=== PATIENT | male | born 1950 | race Caucasian/White ===

== ENCOUNTER 2016-03-19 18:55 | Inpatient (IN) | payer MEDICAID, OTHER ==
[~2016-03-19] VITALS: Ht 162.6 cm; Wt 72.5 kg
[~2016-03-19 18:55] MED LIST: "\\\"BP MED\\\""; ALBUTEROL SULF8.5 GM IH; AMITRIPTYLINE150 MG PO; FLOMAX0.4 MG PO; HYDROCHLOROTHIA25 MG PO; PAXIL20 MG PO; PREDNISONE50 MG PO; TOPROL XL100 MG PO; ZESTRIL,PRINIVIL5 MG PO; ZOCOR20 MG PO
[2016-03-19 19:59] LABS: BASOPHIL COUNT 0.1 K/uL (0-0.1); EOSINOPHIL (%) 3.7 % (0-5); EOSINOPHIL COUNT 0.5 K/uL (0-0.3); HEMATOCRIT 45.3 % (38.0-50.0); IMMATURE GRANULOCYTE (%) 0.5 % (0.0-0.7); IMMATURE GRANULOCYTE COUNT 0.6 K/uL; LYMPHOCYTE COUNT 1.4 K/uL (1.0-2.8); MCH 27.6 PG (29.0-34.0); MCHC 34.2 G/DL (30.0-36.0); MCV 80.7 FL (86-99); MEAN PLAT.VOLUME 9.3 uM^3 (9.0-12.4); MONOCYTE (%) 8.9 % (3-12); MONOCYTE COUNT 1.2 K/uL (0-0.8); NEUTROPHIL (%) 75.6 % (45-76); PLATELET COUNT 495 K/uL (156-360); RBC DIS.WIDTH-CV 15.7 % (11.8-14.6); RED BLOOD COUNT 5.61 M/uL (4.00-5.50); WHITE BLOOD COUNT 13.2 K/uL (4.1-10.2)
[2016-03-19 20:30] LABS: CHLORIDE 105 mEq/L (99-109); POTASSIUM 3.9 mEq/L (3.7-5.4); SODIUM 137 mEq/L (136-147)
[2016-03-19 20:32] LABS: GLUCOSE 95 mg/dL (70-99)
[2016-03-19 20:33] LABS: ANION GAP 9 MEQ/L (2-14)
[2016-03-19 20:34] LABS: TOTAL BILIRUBIN 4.2 mg/dL (0.0-1.0)
[2016-03-19 20:35] LABS: ALKALINE PHOSPHATASE 582 IU/L (3-129)
[2016-03-19 20:36] LABS: GFR ESTIMATE (CALCULATED) > 59 mL/min/
[2016-03-19 20:37] LABS: UREA NITROGEN (BUN) 15 mg/dL (9-23)
[2016-03-19 20:39] LABS: LIPASE 237 U/L (1.0-51.0)
[2016-03-20] VITALS (8 sets, daily range): BP systolic 102–180; BP diastolic 48–98
[2016-03-20 07:07] LABS: BILIRUBIN SMALL; BLOOD NEGATIVE; COLOR YELLOW ((YELLOW)); GLUCOSE (STRIP) NEGATIVE; KETONES NEGATIVE; LEUKOCYTES NEGATIVE; NITRITE NEGATIVE; PH, URINE 6.5 (5-8); PROTEIN (STRIP) NEGATIVE; SPECIFIC GRAVITY 1.021 (1.000-1.030); UROBILINOGEN 0.2 MG/DL (0.2-1.0)
[2016-03-20 07:14] LABS: ADD MIUA? NO
[2016-03-21] VITALS (8 sets, daily range): BP systolic 123–181; BP diastolic 70–92
[2016-03-21 08:40] LABS: HEMATOCRIT 44.7 % (38.0-50.0); MCH 28.7 PG (29.0-34.0); MCHC 35.3 G/DL (30.0-36.0); MCV 81.1 FL (86-99); MEAN PLAT.VOLUME 9.9 uM^3 (9.0-12.4); PLATELET COUNT 454 K/uL (156-360); RBC DIS.WIDTH-CV 15.4 % (11.8-14.6); RBC DIS.WIDTH-SD 44.8 % (39-53); RED BLOOD COUNT 5.51 M/uL (4.00-5.50); WHITE BLOOD COUNT 11.8 K/uL (4.1-10.2)
[2016-03-21 09:06] LABS: ALKALINE PHOSPHATASE 550 IU/L (3-129); ANION GAP 13 MEQ/L (2-14); CHLORIDE 106 MEQ/L (99-109); GFR ESTIMATE (CALCULATED) > 59 mL/min/; GLUCOSE 117 mg/dL (70-99); POTASSIUM 3.5 MEQ/L (3.7-5.4); SAMPLE HEMOLYSIS CHECK 0; SAMPLE ICTERIC CHECK 1; SAMPLE LIPEMIA CHECK 0; SODIUM 140 MEQ/L (136-147); TOTAL BILIRUBIN 5.5 MG/DL (0.0-1.0); UREA NITROGEN (BUN) 7 mg/dL (9-23)
[2016-03-22] VITALS (8 sets, daily range): BP systolic 128–166; BP diastolic 59–108
[2016-03-22 09:26] LABS: INTER. NORMALIZED RATIO 1.3; PROTHROMBIN TIME 12.8 (9.2-11.2); PTT 30.9 (25-32)
[2016-03-22] MEDS ORDERED: AMITRIPTYLINE150 MG PO (14:38)
[2016-03-22] MEDS ORDERED: METOPROLOL TART25 MG PO (14:39)
[2016-03-22] MEDS ORDERED: PROAIR RESPICL90 MCG IH (14:39)
[2016-03-22] MEDS ORDERED: ZESTRIL10 MG PO (14:40)
[2016-03-22] MEDS ORDERED: SIMVASTATIN20 MG PO (14:41)
[2016-03-23 07:38] VITALS: BP 136/86
[2016-03-23 16:05] VITALS: BP 154/86
[2016-03-23 20:11] VITALS: BP 163/89
[2016-03-24 00:16] VITALS: BP 139/88
[2016-03-24 08:30] VITALS: BP 160/97
[2016-03-24 15:51] VITALS: BP 156/94
[2016-03-24 19:23] VITALS: BP 162/94
[2016-03-24 19:53] VITALS: BP 152/90
[2016-03-24 23:43] VITALS: BP 150/94
[2016-03-25 07:49] LABS: HEMATOCRIT 41.8 % (38.0-50.0); MCH 29.1 PG (29.0-34.0); MCHC 36.1 G/DL (30.0-36.0); MCV 80.5 FL (86-99); PLATELET COUNT 431 K/uL (156-360); RBC DIS.WIDTH-CV 15.9 % (11.8-14.6); RBC DIS.WIDTH-SD 45.8 % (39-53); RED BLOOD COUNT 5.19 M/uL (4.00-5.50); WHITE BLOOD COUNT 12.1 K/uL (4.1-10.2)
[2016-03-25 07:57] LABS: INTER. NORMALIZED RATIO 1.3; PROTHROMBIN TIME 13.5 (9.2-11.2); PTT 30.2 (25-32)
[2016-03-25 08:16] LABS: ALKALINE PHOSPHATASE 557 IU/L (3-129); ANION GAP 9 MEQ/L (2-14); CHLORIDE 105 MEQ/L (99-109); GFR ESTIMATE (CALCULATED) > 59 mL/min/; GLUCOSE 112 mg/dL (70-99); POTASSIUM 3.9 MEQ/L (3.7-5.4); SAMPLE HEMOLYSIS CHECK 0; SAMPLE ICTERIC CHECK 2; SAMPLE LIPEMIA CHECK 0; SODIUM 137 MEQ/L (136-147); UREA NITROGEN (BUN) 10 mg/dL (9-23)
[2016-03-25 08:21] LABS: TOTAL BILIRUBIN 7.6 MG/DL (0.0-1.0)
[2016-03-25 09:24] VITALS: BP 148/96
[2016-03-25 11:30] VITALS: BP 160/95
[2016-03-25 23:47] VITALS: BP 121/72
[2016-03-26 06:46] LABS: HEMATOCRIT 39.3 % (38.0-50.0); MCHC 34.9 G/DL (30.0-36.0); MCV 80.2 FL (86-99); MEAN PLAT.VOLUME 10.2 uM^3 (9.0-12.4); PLATELET COUNT 419 K/uL (156-360); RBC DIS.WIDTH-CV 15.8 % (11.8-14.6); RBC DIS.WIDTH-SD 45.7 % (39-53); WHITE BLOOD COUNT 10.5 K/uL (4.1-10.2)
[2016-03-26 07:15] LABS: ALKALINE PHOSPHATASE 619 IU/L (3-129); ANION GAP 8 MEQ/L (2-14); CHLORIDE 106 MEQ/L (99-109); GFR ESTIMATE (CALCULATED) > 59 mL/min/; GLUCOSE 102 mg/dL (70-99); POTASSIUM 3.2 MEQ/L (3.7-5.4); SAMPLE HEMOLYSIS CHECK 0; SAMPLE ICTERIC CHECK 2; SAMPLE LIPEMIA CHECK 0; SODIUM 139 MEQ/L (136-147); TOTAL BILIRUBIN 6.7 MG/DL (0.0-1.0); UREA NITROGEN (BUN) 12 mg/dL (9-23)
[2016-03-26 07:50] VITALS: BP 137/78
[2016-03-26 07:56] VITALS: BP 139/84
[2016-03-26 11:03] LABS: ADD MIUA? YES; BILIRUBIN MODERATE; BLOOD NEGATIVE; COLOR AMBER ((YELLOW)); GLUCOSE (STRIP) NEGATIVE; KETONES NEGATIVE; LEUKOCYTES NEGATIVE; NITRITE NEGATIVE; PROTEIN (STRIP) NEGATIVE; SPECIFIC GRAVITY 1.018 (1.000-1.030)
[2016-03-26 11:05] LABS: ICTOTEST POSITIVE
[2016-03-26 11:45] LABS: BACTERIA NONE SEEN /HPF; EPITHELIAL CELLS RARE /HPF; MUCUS TRACE /LPF; RED BLOOD CELLS 0-5 /HPF (0-5); WHITE BLOOD CELLS NONE SEEN /HPF (0-5)
[2016-03-26] MEDS ORDERED: LISINOPRIL5 MG PO (13:31)
[2016-03-26] MEDS ORDERED: OXYCODONE HCL5 MG PO (13:31)
[2016-03-26 15:10] VITALS: BP 166/92
== END 2016-03-26 19:19 | disposition home or self-care (01) | DRG 981 ==
LOC: EME 18:55 → 3EAST 03-20 00:13 → 4SOUTH 03-20 00:13 → EDOF 03-20 00:13 → 4SOUTH 03-20 12:23 → 3EAST 03-21 21:54
PROVIDERS: Hospitalist; Internal Medicine Gastroenterology; Physician Assistant; Radiology Diagnostic Radiology
DX: C25.0 Malignant neoplasm of head of pancreas (principal); K83.1 Obstruction of bile duct; C78.7 Secondary malignant neoplasm of liver and intrahepatic bile duct; C34.31 Malignant neoplasm of lower lobe, right bronchus or lung; C77.1 Secondary and unspecified malignant neoplasm of intrathoracic lymph nodes; F33.9 Major depressive disorder, recurrent, unspecified; J95.811 Postprocedural pneumothorax; G89.3 Neoplasm related pain (acute) (chronic); I10 Essential (primary) hypertension; R63.4 Abnormal weight loss; F17.210 Nicotine dependence, cigarettes, uncomplicated; K21.9 Gastro-esophageal reflux disease without esophagitis; F12.90 Cannabis use, unspecified, uncomplicated; Z88.6 Allergy status to analgesic agent; Z82.49 Family history of ischemic heart disease and other diseases of the circulatory system
CPT/HCPCS: 71010; 71260; 74174; 74178; 74328; 74330; 77012; 80053; 81003; 82105 90; 82378; 83605; 83690; 85025; 85027; 85610; 85730; 86301 90; 87081; 88305; 88341 TC; 88342 TC; 94640; 99202; 99281; 99284; B4087; C1729; C1757; C1769; C1876; J0330; J0360; J1170; J1650; J1885; J2270; J2405; J3010; J7030

== ENCOUNTER 2016-06-15 23:55 | Inpatient (IN) | payer OTHER ==
[~2016-06-15] VITALS: Ht 170.2 cm; Wt 65.6 kg
[~2016-06-15 23:55] MED LIST changes: +ARYMO ER60 MG PO; +LISINOPRIL5 MG PO; +METOPROLOL TART25 MG PO; +OXYCODONE HCL5 MG PO; +PROAIR RESPICL90 MCG IH; +SIMVASTATIN20 MG PO; +ZESTRIL10 MG PO
[2016-06-16 00:39] LABS: EOSINOPHIL (%) 4.9 % (0-5); EOSINOPHIL COUNT 0.4 K/uL (0-0.3); HEMATOCRIT 36.2 % (38.0-50.0); IMMATURE GRANULOCYTE (%) 0.4 % (0.0-0.7); INSTRUMENT ABS NEUTROPHIL CT 7.8 K/uL; LYMPHOCYTE COUNT 0.5 K/uL (1.0-2.8); MCH 26.8 PG (29.0-34.0); MCHC 33.1 G/DL (30.0-36.0); MEAN PLAT.VOLUME 10.1 uM^3 (9.0-12.4); MONOCYTE (%) 2.2 % (3-12); MONOCYTE COUNT 0.2 K/uL (0-0.8); NEUTROPHIL (%) 87.2 % (45-76); NEUTROPHIL COUNT 7.8 K/uL (1.8-6.4); PLATELET COUNT 181 K/uL (156-360); RBC DIS.WIDTH-CV 16.9 % (11.8-14.6); RBC DIS.WIDTH-SD 46.6 % (39-53); RED BLOOD COUNT 4.47 M/uL (4.00-5.50)
[2016-06-16 00:49] LABS: CHLORIDE 102 mEq/L (99-109); POTASSIUM 4.1 mEq/L (3.7-5.4); SODIUM 136 mEq/L (136-147)
[2016-06-16 00:51] LABS: GLUCOSE 118 mg/dL (70-99)
[2016-06-16 00:52] LABS: ANION GAP 7 MEQ/L (2-14); INTER. NORMALIZED RATIO 1.1; PROTHROMBIN TIME 11.1 (9.2-11.2); PTT 25.2 (25-32)
[2016-06-16 00:53] LABS: TOTAL BILIRUBIN 0.5 mg/dL (0.0-1.0)
[2016-06-16 00:54] LABS: SERUM ETHYL ALCOHOL < 10 mg/dL
[2016-06-16 00:55] LABS: ALKALINE PHOSPHATASE 319 IU/L (3-129); GFR ESTIMATE (CALCULATED) > 59 mL/min/
[2016-06-16 00:56] LABS: DIRECT BILIRUBIN 0.3 mg/dL (0.0-0.3); UREA NITROGEN (BUN) 14 mg/dL (9-23)
[2016-06-16 00:58] LABS: CREATINE KINASE 44 IU/L (1-294); LIPASE 19 U/L (1.0-51.0); TOTAL CK 44 IU/L (1-294)
[2016-06-16 01:04] LABS: CK-MB 0.9 ng/mL (0.0-4.9)
[2016-06-16 02:19] LABS: BILIRUBIN NEGATIVE; BLOOD NEGATIVE; COLOR YELLOW ((YELLOW)); GLUCOSE (STRIP) NEGATIVE; KETONES NEGATIVE; LEUKOCYTES NEGATIVE; NITRITE NEGATIVE; PROTEIN (STRIP) NEGATIVE; SPECIFIC GRAVITY 1.015 (1.000-1.030); UROBILINOGEN 0.2 MG/DL (0.2-1.0)
[2016-06-16 02:28] LABS: ADD MIUA? NO; UCUL ADDED? NO
[2016-06-16 02:29] LABS: COCAINE NEGATIVE (150 ng/mL); PHENCYCLIDINE NEGATIVE (25 ng/mL); THC CANNABINOIDS NEGATIVE (50 ng/mL)
[2016-06-16 02:30] LABS: AMPHETAMINE NEGATIVE (500 ng/mL); BARBITURATES NEGATIVE (200 ng/mL); BENZODIAZEPINES NEGATIVE (150 ng/mL); INTERNAL CONTROLS VALID? YES; METHADONE NEGATIVE (200 ng/mL); METHAMPHETAMINE NEGATIVE (500 ng/mL); OPIATES (MORPHINE) NEGATIVE (100 ng/mL); OXYCODONE PRESUMPTIVE POSITIVE (100 ng/mL); PROPOXYPHENE NEGATIVE (300 ng/mL); TRICYCLIC ANTIDEPRESSANTS PRESUMPTIVE POSITIVE (300 ng/mL)
[2016-06-16 09:12] VITALS: BP 130/82
[2016-06-16 11:10] VITALS: BP 148/76
[2016-06-16 15:37] VITALS: BP 136/73
[2016-06-16 19:52] VITALS: BP 144/86
[2016-06-16 23:46] VITALS: BP 131/75
[2016-06-17 04:10] VITALS: BP 103/75
[2016-06-17 07:40] LABS: HEMATOCRIT 36.1 % (38.0-50.0); MCH 26.4 PG (29.0-34.0); MCHC 32.7 G/DL (30.0-36.0); MCV 80.8 FL (86-99); MEAN PLAT.VOLUME 9.9 uM^3 (9.0-12.4); PLATELET COUNT 235 K/uL (156-360); RBC DIS.WIDTH-CV 16.8 % (11.8-14.6); RBC DIS.WIDTH-SD 46.9 % (39-53); RED BLOOD COUNT 4.47 M/uL (4.00-5.50); WHITE BLOOD COUNT 10.4 K/uL (4.1-10.2)
[2016-06-17 07:53] VITALS: BP 124/75
[2016-06-17 08:03] LABS: ANION GAP 9 MEQ/L (2-14); CHLORIDE 106 MEQ/L (99-109); GFR ESTIMATE (CALCULATED) > 59 mL/min/; GLUCOSE 146 mg/dL (70-99); SAMPLE HEMOLYSIS CHECK 0; SAMPLE ICTERIC CHECK 0; SAMPLE LIPEMIA CHECK 0; SODIUM 138 MEQ/L (136-147); UREA NITROGEN (BUN) 10 mg/dL (9-23)
[2016-06-17 11:13] VITALS: BP 136/70
[2016-06-17 15:52] VITALS: BP 158/83
[2016-06-17] MEDS ORDERED: COMPAZINE10 MG PO (17:53)
[2016-06-17] MEDS ORDERED: ZESTORETIC 10-1 EAC1 PO (17:54)
[2016-06-17] MEDS ORDERED: OXYCODONE HCL30 MG PO (17:55)
[2016-06-17 19:43] VITALS: BP 161/86
[2016-06-18 00:16] VITALS: BP 140/87
[2016-06-18 03:54] VITALS: BP 145/83
[2016-06-18 08:37] VITALS: BP 147/91
[2016-06-18 12:00] VITALS: BP 163/95
[2016-06-18 15:21] VITALS: BP 140/80
[2016-06-18 19:42] VITALS: BP 190/93
[2016-06-19 00:08] VITALS: BP 155/91
[2016-06-19 04:14] VITALS: BP 129/81
[2016-06-19 07:45] VITALS: BP 146/93
[2016-06-19] MEDS ORDERED: SPIRIVA RESPIMAT4 GM IH (08:22)
[2016-06-19] MEDS ORDERED: ADVAIR HFA120 INHALA IH (08:23)
[2016-06-19] MEDS ORDERED: PREDNISONE10 MG PO (08:27)
[2016-06-19] MEDS ORDERED: CEFDINIR300 MG PO (11:30)
[2016-06-19 11:51] VITALS: BP 142/92
== END 2016-06-19 12:45 | disposition home or self-care (01) | DRG 190 ==
LOC: EME → EDBD 23:55 → EME 23:55 → EDOF 06-16 06:06 → 5SOUTH 06-16 06:06
PROVIDERS: Emergency Medicine; Hospitalist
DX: J44.0 Chronic obstructive pulmonary disease with (acute) lower respiratory infection (principal); J18.9 Pneumonia, unspecified organism; J44.1 Chronic obstructive pulmonary disease with (acute) exacerbation; C78.7 Secondary malignant neoplasm of liver and intrahepatic bile duct; C25.9 Malignant neoplasm of pancreas, unspecified; C34.31 Malignant neoplasm of lower lobe, right bronchus or lung; R41.82 Altered mental status, unspecified; E86.0 Dehydration; I10 Essential (primary) hypertension; E78.5 Hyperlipidemia, unspecified; F17.210 Nicotine dependence, cigarettes, uncomplicated
CPT/HCPCS: 70450; 71010; 71020; 80048; 80076; 81003; 82550; 82553; 83605; 83690; 85025; 85027; 85610; 85730; 87040; 87070; 87205; 93005; 94640; 94640 76; 94760; 96375; 96413; 96415; 96417; 99202; 99281; 99285; G0480; J0696; J1100; J1626; J1650; J1956; J2930; J7030; J7050; J7512; J9201; J9264; S0028

== ENCOUNTER 2016-06-25 11:54 | Day surgery (SDC) | payer OTHER, MEDICAID ==
[~2016-06-25] VITALS: Ht 172.7 cm; Wt 65.6 kg
[~2016-06-25 11:54] MED LIST changes: +ADVAIR HFA120 INHALA IH; +CEFDINIR300 MG PO; +COMPAZINE10 MG PO; +OXYCODONE HCL30 MG PO; +PREDNISONE10 MG PO; +SPIRIVA RESPIMAT4 GM IH; +ZESTORETIC 10-1 EAC1 PO
[2016-06-25 12:36] VITALS: BP 175/92
[2016-06-25 16:25] VITALS: BP 157/92
[2016-06-25 17:00] VITALS: BP 163/91
== END 2016-06-25 17:02 | disposition home or self-care (01) ==
LOC: SDC 11:54
DX: C25.9 Malignant neoplasm of pancreas, unspecified (principal); C78.7 Secondary malignant neoplasm of liver and intrahepatic bile duct; C78.01 Secondary malignant neoplasm of right lung; E78.5 Hyperlipidemia, unspecified; I10 Essential (primary) hypertension; J44.9 Chronic obstructive pulmonary disease, unspecified; F32.9 Major depressive disorder, single episode, unspecified; Z83.3 Family history of diabetes mellitus; Z82.5 Family history of asthma and other chronic lower respiratory diseases; Z82.49 Family history of ischemic heart disease and other diseases of the circulatory system; F17.210 Nicotine dependence, cigarettes, uncomplicated
CPT/HCPCS: 71010; C1751; C1894; J0690; J1100; J2250; J2405; J3010

== ENCOUNTER 2016-07-15 20:13 | Inpatient (IN) | payer OTHER ==
[~2016-07-15] VITALS: Ht 170.2 cm; Wt 66.8 kg
[2016-07-15 20:48] LABS: HEMATOCRIT 30.4 % (38.0-50.0); MCH 27.6 PG (29.0-34.0); MCHC 33.2 G/DL (30.0-36.0); MCV 83.1 FL (86-99); MEAN PLAT.VOLUME 10.6 uM^3 (9.0-12.4); PLATELET COUNT 182 K/uL (156-360); RBC DIS.WIDTH-CV 21.2 % (11.8-14.6); RBC DIS.WIDTH-SD 62.1 % (39-53); RED BLOOD COUNT 3.66 M/uL (4.00-5.50)
[2016-07-15 20:52] LABS: CHLORIDE 99 mEq/L (99-109); SODIUM 138 mEq/L (136-147)
[2016-07-15 20:54] LABS: GLUCOSE 116 mg/dL (70-99)
[2016-07-15 20:55] LABS: ANION GAP 9 MEQ/L (2-14)
[2016-07-15 20:56] LABS: PTT 28.9 (25-32)
[2016-07-15 20:58] LABS: GFR ESTIMATE (CALCULATED) > 59 mL/min/
[2016-07-15 20:59] LABS: UREA NITROGEN (BUN) 11 mg/dL (9-23)
[2016-07-15 21:04] LABS: WHITE BLOOD COUNT 5.9 K/uL (4.1-10.2)
[2016-07-15 21:05] LABS: POTASSIUM 3.1 mEq/L (3.7-5.4)
[2016-07-15] MEDS ORDERED: SPIRIVA RESPIMAT4 GM IH (21:56)
[2016-07-15] MEDS ORDERED: MEN 50 PLUS MU1 EACH PO (21:57)
[2016-07-15] MEDS ORDERED: ADVIL200 MG PO (21:57)
[2016-07-15] MEDS ORDERED: MORPHINE SULFAT60 MG PO (21:57)
[2016-07-15 22:05] LABS: INTER. NORMALIZED RATIO 1.1; PROTHROMBIN TIME 11.1 (9.2-11.2)
[2016-07-15 22:22] LABS: EOSINOPHIL (%) 7.4 % (0-5); EOSINOPHIL COUNT 0.4 K/uL (0-0.3); HEMATOLOGY COMMENT 1 SMEAR COMPATIBLE; IMMATURE GRANULOCYTE (%) 2.4 % (0.0-0.7); IMMATURE GRANULOCYTE COUNT 0.1 K/uL; INSTRUMENT ABS NEUTROPHIL CT 4.9 K/uL; LYMPHOCYTE COUNT 0.3 K/uL (1.0-2.8); MONOCYTE (%) 1.5 % (3-12); MONOCYTE COUNT 0.1 K/uL (0-0.8); NEUTROPHIL (%) 82.8 % (45-76); NEUTROPHIL COUNT 4.9 K/uL (1.8-6.4); PLAT.SUFFICIENCY ADEQUATE
[2016-07-16 01:03] VITALS: BP 140/85
[2016-07-16 05:31] LABS: HEMATOCRIT 28.7 % (38.0-50.0); MCH 27.4 PG (29.0-34.0); MCHC 33.4 G/DL (30.0-36.0); MEAN PLAT.VOLUME 10.8 uM^3 (9.0-12.4); NRBC (%) 0.9 /100 WBC (0-0); PLATELET COUNT 192 K/uL (156-360); RBC DIS.WIDTH-SD 60.2 % (39-53); WHITE BLOOD COUNT 4.6 K/uL (4.1-10.2)
[2016-07-16 07:54] LABS: ALKALINE PHOSPHATASE 384 IU/L (3-129); ANION GAP 10 MEQ/L (2-14); CHLORIDE 98 MEQ/L (99-109); GFR ESTIMATE (CALCULATED) > 59 mL/min/; GLUCOSE 106 mg/dL (70-99); POTASSIUM 2.7 MEQ/L (3.7-5.4); SAMPLE HEMOLYSIS CHECK 0; SAMPLE ICTERIC CHECK 0; SAMPLE LIPEMIA CHECK 0; SODIUM 137 MEQ/L (136-147); TOTAL BILIRUBIN 0.4 MG/DL (0.0-1.0); UREA NITROGEN (BUN) 10 mg/dL (9-23)
[2016-07-16 08:00] VITALS: BP 129/76
[2016-07-16 14:38] LABS: ANION GAP 9 MEQ/L (2-14); CHLORIDE 99 MEQ/L (99-109); POTASSIUM 3.4 MEQ/L (3.7-5.4); SAMPLE HEMOLYSIS CHECK 1; SAMPLE ICTERIC CHECK 0; SAMPLE LIPEMIA CHECK 0; SODIUM 135 MEQ/L (136-147)
[2016-07-16 14:43] LABS: GFR ESTIMATE (CALCULATED) > 59 mL/min/; GLUCOSE 133 mg/dL (70-99); UREA NITROGEN (BUN) 9 mg/dL (9-23)
[2016-07-16 18:09] VITALS: BP 127/75
[2016-07-16 21:07] VITALS: BP 152/86
[2016-07-16 21:13] VITALS: BP 131/76
[2016-07-17 01:38] VITALS: BP 142/74
[2016-07-17 04:11] VITALS: BP 135/88
[2016-07-17 06:16] LABS: HEMATOCRIT 29.2 % (38.0-50.0); MCH 27.8 PG (29.0-34.0); MCHC 33.9 G/DL (30.0-36.0); MEAN PLAT.VOLUME 10.7 uM^3 (9.0-12.4); NRBC (%) 5.6 /100 WBC (0-0); PLATELET COUNT 177 K/uL (156-360); RBC DIS.WIDTH-CV 21.2 % (11.8-14.6); RBC DIS.WIDTH-SD 61.1 % (39-53); RED BLOOD COUNT 3.56 M/uL (4.00-5.50); WHITE BLOOD COUNT 5.2 K/uL (4.1-10.2)
[2016-07-17 07:06] LABS: ANION GAP 8 MEQ/L (2-14); CHLORIDE 105 MEQ/L (99-109); GFR ESTIMATE (CALCULATED) > 59 mL/min/; POTASSIUM 3.6 MEQ/L (3.7-5.4); SAMPLE HEMOLYSIS CHECK 0; SAMPLE ICTERIC CHECK 0; SAMPLE LIPEMIA CHECK 0; SODIUM 138 MEQ/L (136-147); UREA NITROGEN (BUN) 7 mg/dL (9-23)
[2016-07-17 07:10] LABS: GLUCOSE 87 mg/dL (70-99)
[2016-07-17 16:00] VITALS: BP 147/88
[2016-07-17 19:22] VITALS: BP 154/86
[2016-07-17 23:00] VITALS: BP 140/83
[2016-07-18 03:10] VITALS: BP 139/86
[2016-07-18 06:45] VITALS: BP 143/86
[2016-07-18 07:32] LABS: ANION GAP 7 MEQ/L (2-14); CHLORIDE 106 MEQ/L (99-109); GFR ESTIMATE (CALCULATED) > 59 mL/min/; GLUCOSE 93 mg/dL (70-99); SAMPLE HEMOLYSIS CHECK 0; SAMPLE ICTERIC CHECK 0; SAMPLE LIPEMIA CHECK 0; SODIUM 140 MEQ/L (136-147); UREA NITROGEN (BUN) 7 mg/dL (9-23)
[2016-07-18 07:36] LABS: POTASSIUM 4.9 MEQ/L (3.7-5.4)
[2016-07-18] MEDS ORDERED: LOVENOX60 MG/0.6 SC (09:31)
[2016-07-18] MEDS ORDERED: NICOTINE PATCH1 EAC2 TD (09:31)
[2016-07-18 11:30] VITALS: BP 140/84
== END 2016-07-18 12:52 | disposition home or self-care (01) | DRG 315 ==
LOC: EME 20:13 → EDOF 07-16 00:05 → 5EAST 07-16 00:05
PROVIDERS: Emergency Medicine; Hospitalist
DX: T82.868A Thrombosis due to vascular prosthetic devices, implants and grafts, initial encounter (principal); Y83.2 Surgical operation with anastomosis, bypass or graft as the cause of abnormal reaction of the patient, or of later complication, without mention of misadventure at the time of the procedure; C25.9 Malignant neoplasm of pancreas, unspecified; C78.7 Secondary malignant neoplasm of liver and intrahepatic bile duct; C34.90 Malignant neoplasm of unspecified part of unspecified bronchus or lung; I82.621 Acute embolism and thrombosis of deep veins of right upper extremity; I82.611 Acute embolism and thrombosis of superficial veins of right upper extremity; F17.200 Nicotine dependence, unspecified, uncomplicated; I10 Essential (primary) hypertension; J44.9 Chronic obstructive pulmonary disease, unspecified; E78.5 Hyperlipidemia, unspecified; E87.6 Hypokalemia; R19.7 Diarrhea, unspecified; F32.9 Major depressive disorder, single episode, unspecified
CPT/HCPCS: 80048; 80048 91; 80053; 85025; 85027; 85610; 85730; 87040; 87076; 87493; 93971; 94640; 94640 76; 94799; 99281; 99284; J1650; J2270; J3480

== ENCOUNTER 2016-08-08 09:43 | Inpatient (IN) | payer OTHER ==
[~2016-08-08] VITALS: Ht 170.2 cm; Wt 63.9 kg
[~2016-08-08 09:43] MED LIST changes: +ADVIL200 MG PO; +LOVENOX60 MG/0.6 SC; +MEN 50 PLUS MU1 EACH PO; +MORPHINE SULFAT60 MG PO; +NICOTINE PATCH1 EAC2 TD
[2016-08-08 10:37] LABS: HEMATOCRIT 38.2 % (38.0-50.0); MCHC 32.7 G/DL (30.0-36.0); MCV 82.5 FL (86-99); MEAN PLAT.VOLUME 9.5 uM^3 (9.0-12.4); NRBC (%) 0.2 /100 WBC (0-0); PLATELET COUNT 538 K/uL (156-360); RBC DIS.WIDTH-CV 21.3 % (11.8-14.6); RBC DIS.WIDTH-SD 61.7 % (39-53); RED BLOOD COUNT 4.63 M/uL (4.00-5.50); WHITE BLOOD COUNT 27.8 K/uL (4.1-10.2)
[2016-08-08 10:40] LABS: CHLORIDE 101 mEq/L (99-109); POTASSIUM 3.5 mEq/L (3.7-5.4); SODIUM 141 mEq/L (136-147)
[2016-08-08 10:41] LABS: GLUCOSE 131 mg/dL (70-99)
[2016-08-08 10:43] LABS: ANION GAP 11 MEQ/L (2-14)
[2016-08-08 10:45] LABS: GFR ESTIMATE (CALCULATED) > 59 mL/min/
[2016-08-08 10:46] LABS: UREA NITROGEN (BUN) 14 mg/dL (9-23)
[2016-08-08 11:53] LABS: TOTAL BILIRUBIN 0.3 mg/dL (0.0-1.0)
[2016-08-08 11:54] LABS: ALKALINE PHOSPHATASE 944 IU/L (3-129)
[2016-08-08 11:56] LABS: DIRECT BILIRUBIN 0.2 mg/dL (0.0-0.3)
[2016-08-08] MEDS ORDERED: ADVAIR HFA120 INHALA IH (15:08)
[2016-08-08 20:13] VITALS: BP 167/100
[2016-08-09] VITALS (7 sets, daily range): BP systolic 144–173; BP diastolic 80–92
[2016-08-09 06:51] LABS: BASOPHIL COUNT 0.1 K/uL (0-0.1); EOSINOPHIL (%) 0.1 % (0-5); IMMATURE GRANULOCYTE (%) 2.2 % (0.0-0.7); IMMATURE GRANULOCYTE COUNT 0.8 K/uL; INSTRUMENT ABS NEUTROPHIL CT 29.6 K/uL; LYMPHOCYTE COUNT 1.9 K/uL (1.0-2.8); MEAN PLAT.VOLUME 10.8 uM^3 (9.0-12.4); MONOCYTE (%) 6.9 % (3-12); MONOCYTE COUNT 2.4 K/uL (0-0.8); NEUTROPHIL (%) 84.9 % (45-76); NEUTROPHIL COUNT 29.6 K/uL (1.8-6.4); PLATELET COUNT 571 K/uL (156-360)
[2016-08-09 07:16] LABS: ANION GAP 10 MEQ/L (2-14); CHLORIDE 103 MEQ/L (99-109); GFR ESTIMATE (CALCULATED) > 59 mL/min/; GLUCOSE 173 mg/dL (70-99); POTASSIUM 3.5 MEQ/L (3.7-5.4); SAMPLE HEMOLYSIS CHECK 0; SAMPLE ICTERIC CHECK 0; SAMPLE LIPEMIA CHECK 0; SODIUM 142 MEQ/L (136-147); UREA NITROGEN (BUN) 10 mg/dL (9-23)
[2016-08-09 07:31] LABS: HEMATOCRIT 39.4 % (38.0-50.0); MCH 27.7 PG (29.0-34.0); NRBC (%) 0.1 /100 WBC (0-0); RBC DIS.WIDTH-SD 63.7 % (39-53); RED BLOOD COUNT 4.69 M/uL (4.00-5.50)
[2016-08-09 07:39] LABS: WHITE BLOOD COUNT 34.9 K/uL (4.1-10.2)
[2016-08-09 13:18] LABS: TROP-I INTERPRETATION NEGATIVE; TROPONIN-I < 0.01 ng/mL (0.0-0.30)
[2016-08-09 18:27] LABS: TROP-I INTERPRETATION NEGATIVE; TROPONIN-I < 0.01 ng/mL (0.0-0.30)
[2016-08-10 04:28] VITALS: BP 151/85
[2016-08-10 06:52] VITALS: BP 179/90
[2016-08-10 09:25] LABS: BASOPHIL COUNT 0.3 K/uL (0-0.1); EOSINOPHIL (%) 4.6 % (0-5); EOSINOPHIL COUNT 1.5 K/uL (0-0.3); IMMATURE GRANULOCYTE (%) 3.9 % (0.0-0.7); IMMATURE GRANULOCYTE COUNT 1.2 K/uL; INSTRUMENT ABS NEUTROPHIL CT 23.2 K/uL; LYMPHOCYTE COUNT 1.8 K/uL (1.0-2.8); MEAN PLAT.VOLUME 9.7 uM^3 (9.0-12.4); MONOCYTE (%) 10.8 % (3-12); MONOCYTE COUNT 3.4 K/uL (0-0.8); NEUTROPHIL (%) 74.1 % (45-76); NEUTROPHIL COUNT 23.2 K/uL (1.8-6.4); PLATELET COUNT 537 K/uL (156-360)
[2016-08-10 09:36] LABS: HEMATOCRIT 38.2 % (38.0-50.0); MCH 26.9 PG (29.0-34.0); MCHC 32.2 G/DL (30.0-36.0); MCV 83.4 FL (86-99); NRBC (%) 0.2 /100 WBC (0-0); RBC DIS.WIDTH-CV 21.9 % (11.8-14.6); RBC DIS.WIDTH-SD 63.7 % (39-53); RED BLOOD COUNT 4.58 M/uL (4.00-5.50)
[2016-08-10 09:40] LABS: WHITE BLOOD COUNT 31.4 K/uL (4.1-10.2)
[2016-08-10 09:51] LABS: ANION GAP 8 MEQ/L (2-14); CHLORIDE 104 MEQ/L (99-109); GFR ESTIMATE (CALCULATED) > 59 mL/min/; GLUCOSE 126 mg/dL (70-99); POTASSIUM 4.1 MEQ/L (3.7-5.4); SAMPLE HEMOLYSIS CHECK 0; SAMPLE ICTERIC CHECK 0; SAMPLE LIPEMIA CHECK 0; SODIUM 139 MEQ/L (136-147); UREA NITROGEN (BUN) 7 mg/dL (9-23)
[2016-08-10 10:50] VITALS: BP 151/87
[2016-08-10 15:06] VITALS: BP 163/90
[2016-08-10 18:46] VITALS: BP 156/94
[2016-08-10 22:46] VITALS: BP 163/97
[2016-08-11 02:33] VITALS: BP 151/87
[2016-08-11 06:40] VITALS: BP 157/94
[2016-08-11 07:27] LABS: BASOPHIL COUNT 0.2 K/uL (0-0.1); EOSINOPHIL (%) 5.1 % (0-5); EOSINOPHIL COUNT 1.3 K/uL (0-0.3); HEMATOCRIT 36.9 % (38.0-50.0); IMMATURE GRANULOCYTE (%) 4.1 % (0.0-0.7); IMMATURE GRANULOCYTE COUNT 1.1 K/uL; INSTRUMENT ABS NEUTROPHIL CT 18.3 K/uL; LYMPHOCYTE COUNT 1.8 K/uL (1.0-2.8); MCH 27.5 PG (29.0-34.0); MCHC 33.6 G/DL (30.0-36.0); MCV 81.8 FL (86-99); MEAN PLAT.VOLUME 10.4 uM^3 (9.0-12.4); MONOCYTE COUNT 3.1 K/uL (0-0.8); NEUTROPHIL (%) 70.9 % (45-76); NEUTROPHIL COUNT 18.3 K/uL (1.8-6.4); NRBC (%) 0.3 /100 WBC (0-0); PLATELET COUNT 533 K/uL (156-360); RBC DIS.WIDTH-CV 21.7 % (11.8-14.6); RBC DIS.WIDTH-SD 61.9 % (39-53); RED BLOOD COUNT 4.51 M/uL (4.00-5.50); WHITE BLOOD COUNT 25.9 K/uL (4.1-10.2)
[2016-08-11 07:50] LABS: ANION GAP 10 MEQ/L (2-14); CHLORIDE 104 MEQ/L (99-109); GFR ESTIMATE (CALCULATED) > 59 mL/min/; GLUCOSE 108 mg/dL (70-99); POTASSIUM 3.5 MEQ/L (3.7-5.4); SAMPLE HEMOLYSIS CHECK 0; SAMPLE ICTERIC CHECK 0; SAMPLE LIPEMIA CHECK 0; SODIUM 140 MEQ/L (136-147); UREA NITROGEN (BUN) 8 mg/dL (9-23)
[2016-08-11 11:15] VITALS: BP 166/102
[2016-08-11 14:03] VITALS: BP 157/94
[2016-08-11 22:37] VITALS: BP 125/85
[2016-08-12 06:20] LABS: BASOPHIL COUNT 0.2 K/uL (0-0.1); EOSINOPHIL COUNT 1.3 K/uL (0-0.3); HEMATOCRIT 37.8 % (38.0-50.0); IMMATURE GRANULOCYTE (%) 3.7 % (0.0-0.7); IMMATURE GRANULOCYTE COUNT 0.9 K/uL; INSTRUMENT ABS NEUTROPHIL CT 17.9 K/uL; LYMPHOCYTE COUNT 1.6 K/uL (1.0-2.8); MCH 27.2 PG (29.0-34.0); MCHC 33.1 G/DL (30.0-36.0); MCV 82.4 FL (86-99); MEAN PLAT.VOLUME 9.8 uM^3 (9.0-12.4); MONOCYTE (%) 11.7 % (3-12); MONOCYTE COUNT 2.9 K/uL (0-0.8); NEUTROPHIL (%) 72.2 % (45-76); NEUTROPHIL COUNT 17.9 K/uL (1.8-6.4); NRBC (%) 0.2 /100 WBC (0-0); PLATELET COUNT 538 K/uL (156-360); RBC DIS.WIDTH-CV 21.5 % (11.8-14.6); RED BLOOD COUNT 4.59 M/uL (4.00-5.50); WHITE BLOOD COUNT 24.8 K/uL (4.1-10.2)
[2016-08-12 06:44] LABS: ANION GAP 9 MEQ/L (2-14); CHLORIDE 105 MEQ/L (99-109); GFR ESTIMATE (CALCULATED) > 59 mL/min/; GLUCOSE 84 mg/dL (70-99); SAMPLE HEMOLYSIS CHECK 0; SAMPLE ICTERIC CHECK 0; SAMPLE LIPEMIA CHECK 0; SODIUM 140 MEQ/L (136-147); UREA NITROGEN (BUN) 10 mg/dL (9-23)
[2016-08-12 06:47] LABS: POTASSIUM 4.6 MEQ/L (3.7-5.4)
[2016-08-12 07:36] VITALS: BP 147/107
[2016-08-12 16:11] VITALS: BP 156/106
[2016-08-12 22:33] VITALS: BP 158/87
[2016-08-13 06:59] LABS: BASOPHIL COUNT 0.2 K/uL (0-0.1); EOSINOPHIL (%) 6.4 % (0-5); EOSINOPHIL COUNT 1.7 K/uL (0-0.3); HEMATOCRIT 41.5 % (38.0-50.0); IMMATURE GRANULOCYTE (%) 3.6 % (0.0-0.7); IMMATURE GRANULOCYTE COUNT 0.9 K/uL; INSTRUMENT ABS NEUTROPHIL CT 18.5 K/uL; LYMPHOCYTE COUNT 1.6 K/uL (1.0-2.8); MCH 26.9 PG (29.0-34.0); MCHC 32.5 G/DL (30.0-36.0); MCV 82.7 FL (86-99); MONOCYTE (%) 11.2 % (3-12); MONOCYTE COUNT 2.9 K/uL (0-0.8); NEUTROPHIL (%) 71.7 % (45-76); NEUTROPHIL COUNT 18.5 K/uL (1.8-6.4); NRBC (%) 0.2 /100 WBC (0-0); PLATELET COUNT 526 K/uL (156-360); RBC DIS.WIDTH-SD 63.7 % (39-53); RED BLOOD COUNT 5.02 M/uL (4.00-5.50); WHITE BLOOD COUNT 25.8 K/uL (4.1-10.2)
[2016-08-13 07:02] VITALS: BP 154/99
[2016-08-13 07:25] LABS: ANION GAP 10 MEQ/L (2-14); CHLORIDE 106 MEQ/L (99-109); GFR ESTIMATE (CALCULATED) > 59 mL/min/; GLUCOSE 82 mg/dL (70-99); POTASSIUM 4.6 MEQ/L (3.7-5.4); SAMPLE HEMOLYSIS CHECK 0; SAMPLE ICTERIC CHECK 0; SAMPLE LIPEMIA CHECK 0; SODIUM 139 MEQ/L (136-147); UREA NITROGEN (BUN) 12 mg/dL (9-23)
[2016-08-13 15:31] VITALS: BP 155/100
[2016-08-13 21:00] LABS: DIRECT BILIRUBIN 0.1 mg/dL (0.0-0.3); TOTAL BILIRUBIN 0.5 MG/DL (0.0-1.0)
[2016-08-13 21:06] LABS: ALKALINE PHOSPHATASE 1307 IU/L (3-129)
[2016-08-13 23:52] VITALS: BP 164/90
[2016-08-14 07:55] VITALS: BP 163/94
[2016-08-14 09:36] LABS: BASOPHIL COUNT 0.1 K/uL (0-0.1); EOSINOPHIL (%) 1.8 % (0-5); EOSINOPHIL COUNT 0.5 K/uL (0-0.3); IMMATURE GRANULOCYTE (%) 1.9 % (0.0-0.7); IMMATURE GRANULOCYTE COUNT 0.6 K/uL; INSTRUMENT ABS NEUTROPHIL CT 23.5 K/uL; LYMPHOCYTE COUNT 1.3 K/uL (1.0-2.8); MCH 27.7 PG (29.0-34.0); MCHC 33.7 G/DL (30.0-36.0); MCV 82.3 FL (86-99); MEAN PLAT.VOLUME 10.1 uM^3 (9.0-12.4); MONOCYTE (%) 10.1 % (3-12); MONOCYTE COUNT 2.9 K/uL (0-0.8); NEUTROPHIL (%) 81.4 % (45-76); NEUTROPHIL COUNT 23.5 K/uL (1.8-6.4); NRBC (%) 0.1 /100 WBC (0-0); PLATELET COUNT 508 K/uL (156-360); RBC DIS.WIDTH-CV 22.2 % (11.8-14.6); RBC DIS.WIDTH-SD 63.4 % (39-53); RED BLOOD COUNT 4.62 M/uL (4.00-5.50); WHITE BLOOD COUNT 28.9 K/uL (4.1-10.2)
[2016-08-14 10:09] LABS: ANION GAP 8 MEQ/L (2-14); CHLORIDE 103 MEQ/L (99-109); GFR ESTIMATE (CALCULATED) > 59 mL/min/; POTASSIUM 4.5 MEQ/L (3.7-5.4); SAMPLE HEMOLYSIS CHECK 0; SAMPLE ICTERIC CHECK 0; SAMPLE LIPEMIA CHECK 0; SODIUM 138 MEQ/L (136-147); UREA NITROGEN (BUN) 13 mg/dL (9-23)
[2016-08-14 10:12] LABS: GLUCOSE 120 mg/dL (70-99)
[2016-08-14 17:22] VITALS: BP 156/87
[2016-08-15] VITALS: BP 124/86
[2016-08-15 07:50] VITALS: BP 136/79
[2016-08-15 16:11] VITALS: BP 152/92
[2016-08-16 01:25] VITALS: BP 126/71
[2016-08-16 07:07] VITALS: BP 161/89
[2016-08-16 07:26] LABS: ALKALINE PHOSPHATASE 1238 IU/L (3-129); ANION GAP 9 MEQ/L (2-14); CHLORIDE 100 MEQ/L (99-109); GFR ESTIMATE (CALCULATED) > 59 mL/min/; GLUCOSE 100 mg/dL (70-99); POTASSIUM 4.2 MEQ/L (3.7-5.4); SAMPLE HEMOLYSIS CHECK 0; SAMPLE ICTERIC CHECK 0; SAMPLE LIPEMIA CHECK 0; SODIUM 134 MEQ/L (136-147); UREA NITROGEN (BUN) 15 mg/dL (9-23)
[2016-08-16 07:28] LABS: TOTAL BILIRUBIN 0.9 MG/DL (0.0-1.0)
[2016-08-16 08:19] LABS: ABS NEUTROPHIL COUNT 28.6; BAND NEUTROPHILS 1.8 % (0-8.0); EOSINOPHIL ABS CT 0.8; EOSINOPHILS 2.6 % (0-5.0); HEMATOCRIT 36.4 % (38.0-50.0); INSTRUMENT ABS NEUTROPHIL CT 28.3 K/uL; LYMPHOCYTES 1.8 % (15.0-45.0); MCH 27.1 PG (29.0-34.0); MCHC 32.7 G/DL (30.0-36.0); MCV 82.9 FL (86-99); MEAN PLAT.VOLUME 10.9 uM^3 (9.0-12.4); NRBC (%) 0.1 /100 WBC (0-0); PLATELET COUNT 467 K/uL (156-360); RBC DIS.WIDTH-CV 21.6 % (11.8-14.6); RBC DIS.WIDTH-SD 63.1 % (39-53); RED BLOOD COUNT 4.39 M/uL (4.00-5.50); SEG.NEUTROPHILS 86.8 % (46.0-76.0)
[2016-08-16 08:34] LABS: WHITE BLOOD COUNT 32.3 K/uL (4.1-10.2)
[2016-08-16 13:55] LABS: ACANTHOCYTES 1+; ANISOCYTOSIS 2+; BURR CELLS 2+; HELMET CELLS 1+; HEMATOLOGY COMMENT 1 SN; HYPOCHROMASIA 1+; MACROCYTES 2+; PLAT.SUFFICIENCY INCREASED; POIKILOCYTOSIS 2+; POLYCHROMASIA 1+; SPHEROCYTES 1+; TARGET CELLS 1+
[2016-08-16 16:35] VITALS: BP 158/91
[2016-08-16 23:20] VITALS: BP 108/69
[2016-08-17 07:00] VITALS: BP 121/74
[2016-08-17 07:08] LABS: ALKALINE PHOSPHATASE 1209 IU/L (3-129); ANION GAP 11 MEQ/L (2-14); CHLORIDE 100 MEQ/L (99-109); GFR ESTIMATE (CALCULATED) > 59 mL/min/; POTASSIUM 4.7 MEQ/L (3.7-5.4); SAMPLE HEMOLYSIS CHECK 0; SAMPLE ICTERIC CHECK 0; SAMPLE LIPEMIA CHECK 0; SODIUM 136 MEQ/L (136-147)
[2016-08-17 07:10] LABS: GLUCOSE 67 mg/dL (70-99); TOTAL BILIRUBIN 1.3 MG/DL (0.0-1.0); UREA NITROGEN (BUN) 25 mg/dL (9-23)
[2016-08-17 07:16] LABS: BASOPHIL COUNT 0.1 K/uL (0-0.1); EOSINOPHIL (%) 0.1 % (0-5); HEMATOCRIT 35.9 % (38.0-50.0); IMMATURE GRANULOCYTE (%) 1.2 % (0.0-0.7); IMMATURE GRANULOCYTE COUNT 0.5 K/uL; INSTRUMENT ABS NEUTROPHIL CT 37.2 K/uL; LYMPHOCYTE COUNT 0.7 K/uL (1.0-2.8); MCH 27.8 PG (29.0-34.0); MCV 81.8 FL (86-99); MONOCYTE COUNT 1.2 K/uL (0-0.8); NEUTROPHIL (%) 93.8 % (45-76); NEUTROPHIL COUNT 37.2 K/uL (1.8-6.4); NRBC (%) 0.1 /100 WBC (0-0); RBC DIS.WIDTH-CV 21.7 % (11.8-14.6); RBC DIS.WIDTH-SD 61.3 % (39-53); RED BLOOD COUNT 4.39 M/uL (4.00-5.50)
[2016-08-17 07:22] LABS: WHITE BLOOD COUNT 39.7 K/uL (4.1-10.2)
[2016-08-17 07:40] LABS: ACANTHOCYTES 1+; ANISOCYTOSIS 3+; HYPOCHROMASIA 1+; MACROCYTES 2+; MICROCYTOSIS 1+; PLAT.SUFFICIENCY INCREASED; PLATELET COUNT 524 K/uL (156-360); POIKILOCYTOSIS 3+; POLYCHROMASIA 1+; SCHISTOCYTES 1+; SPHEROCYTES 1+; TARGET CELLS 1+
[2016-08-17] MEDS ORDERED: OXYCODONE HCL30 MG PO (12:31)
[2016-08-17] MEDS ORDERED: MORPHINE SULFAT60 MG PO (12:31)
[2016-08-17] MEDS ORDERED: DUONEB 2.5-0.5 M3 ML AEROSOL (12:31)
== END 2016-08-17 17:45 | disposition hospice, home (50) | DRG 190 ==
LOC: EME 09:43 → EXP 09:43 → 5EAST 15:20 → EDOF 15:20 → 5EAST 20:00
PROVIDERS: Hospitalist; Internal Medicine
PROC: 0JPT0XZ Removal of Tunneled Vascular Access Device from Trunk Subcutaneous Tissue and Fascia, Open Approach (ICD-10-PCS; principal; 2016-08-13)
DX: J44.0 Chronic obstructive pulmonary disease with (acute) lower respiratory infection (principal); J18.9 Pneumonia, unspecified organism; K72.90 Hepatic failure, unspecified without coma; I82.B11 Acute embolism and thrombosis of right subclavian vein; C25.9 Malignant neoplasm of pancreas, unspecified; I82.621 Acute embolism and thrombosis of deep veins of right upper extremity; J90 Pleural effusion, not elsewhere classified; R64 Cachexia; E87.6 Hypokalemia; Y95 Nosocomial condition; C78.7 Secondary malignant neoplasm of liver and intrahepatic bile duct; C34.90 Malignant neoplasm of unspecified part of unspecified bronchus or lung; K59.00 Constipation, unspecified; I10 Essential (primary) hypertension; F17.200 Nicotine dependence, unspecified, uncomplicated; D75.89 Other specified diseases of blood and blood-forming organs; D89.9 Disorder involving the immune mechanism, unspecified; E78.5 Hyperlipidemia, unspecified; Z51.5 Encounter for palliative care; Z66 Do not resuscitate; Z68.22 Body mass index [BMI] 22.0-22.9, adult; R09.02 Hypoxemia; N40.0 Benign prostatic hyperplasia without lower urinary tract symptoms; Z79.01 Long term (current) use of anticoagulants; Z86.718 Personal history of other venous thrombosis and embolism
CPT/HCPCS: 70450; 71010; 71020; 71260; 74000; 74160; 80048; 80053; 80076; 80202; 82140; 83605; 84484; 85025; 85027; 87040; 87070; 87205; 93005; 94640; 94640 76; 94760; 94799; 99202; 99281; 99285; C9113; J0360; J1100; J1170; J1650; J1885; J1956; J2250; J2270; J2405; J2543; J3010; J3370; J7030; J7050